=== PATIENT | female | born 1970 | race Caucasian/White ===

== ENCOUNTER 2018-07-18 17:08 | Emergency (ER) | payer OTHER ==
[~2018-07-18] VITALS: Ht 167.6 cm; Wt 64.4 kg
[~2018-07-18 17:08] MED LIST: ALLEGRA ALLERG180 MG; SINGULAIR5 MG
== END 2018-07-18 20:49 | disposition home or self-care (01) ==
LOC: ER 17:08
DX: M79.644 Pain in right finger(s) (principal)

== ENCOUNTER 2018-12-17 14:49 | Emergency (ER) | payer OTHER ==
[~2018-12-17] VITALS: Ht 167.6 cm; Wt 68.0 kg
== END 2018-12-17 21:20 | disposition home or self-care (01) ==
LOC: ER 14:49
DX: N93.8 Other specified abnormal uterine and vaginal bleeding (principal)

== ENCOUNTER 2024-10-06 00:02 | Emergency (ER) | payer OTHER ==
[~2024-10-06] VITALS: Ht 162.6 cm; Wt 68.0 kg
[2024-10-06] MEDS ORDERED: LYRICA20 MG/1 ML PO (00:13)
[2024-10-06] MEDS ORDERED: BUTALB/ACETAMINOPHEN/CAFFEINE 1 TAB TABLET PO ONE ×2 (00:59→01:00)
[2024-10-06] MEDS ORDERED: DEXAMETHASONE SODIUM PHOSPHATE 4 MG/ML VIAL ONE (00:59)
[2024-10-06] MEDS ORDERED: DEXAMETHASONE SODIUM PHOSPHATE 4 MG/ML VIAL IM ONE (01:00)
[2024-10-06] MEDS ORDERED: GUAIFEN/DEXTROMETHORPHAN/PE 10 ML BLIST.PACK PO ONE (01:00)
[2024-10-06] MEDS ORDERED: GUAIFENESIN/DEXTROMETHORPHAN 100MG/10ML BLIST.PACK PO ONE (01:00)
[2024-10-06 01:27] LABS: HEMATOCRIT 39.9 % (36.0-45.00); HEMOGLOBIN 13.5 g/dL (12.0-15.00); MEAN CELL VOLUME 90.4 fL (80.00-100.00); MEAN CORPUSCULAR HEMOGLOBIN 30.6 pg (27.00-32.0); MEAN CORPUSCULAR HGB CONC 33.9 g/dl (32.0-36.0); PLATELET COUNT 164 K/uL (150-450); RED BLOOD COUNT 4.42 M/uL (4.00-6.00); RED CELL DISTRIBUTION WIDTH 13.8 % (11.5-14.5)
[2024-10-06] MEDS ORDERED: OSELTAMIVIR PHOSPHATE 75 MG CAPSULE PO ONE ×2 (01:27→01:30)
[2024-10-06] MEDS ORDERED: OSEL75CA PO (01:49)
[2024-10-06] MEDS ORDERED: TUSNEL LIQUID178 ML PO (01:49)
== END 2024-10-06 02:47 | disposition home or self-care (01) ==
LOC: ER 00:04
PROVIDERS: General Practice
DX: J10.1 Influenza due to other identified influenza virus with other respiratory manifestations (principal); Z20.822 Contact with and (suspected) exposure to COVID-19; Z88.6 Allergy status to analgesic agent